=== PATIENT | male | born 1980 | race Hispanic/Latino ===

== ENCOUNTER → 2024-02-14 | Outpatient (CLI) | payer OTHER ==
[2024-02-14] MEDS: REGADENOSON 0.4 MG/5 ML PF SYG IVP SCH (11:20)
--- NOTE | 2024-02-14 17:28 | HMCSR ---
APPROVED REPORT Height: 5 ft 7in Weight: 178 lbs TEST INDICATIONS Chest Pain The imaging protocol used to acquire images was Rest Tc-99m/stress Tc-99m 1 day Consent: The procedure was explained and understood by the patient. Informerd consent was witnessed avani Jc RN First, low dose rest was performed then high dose stress. RESTING DATA: The resting ekg shows: NSR Rest SPECT myocardial perfusion imaging was performed in supine position minutes following the intra venous injection of 10 mCi of Tc-99 Sestamibi. Time of rest injection: Date: 02/14/2024 Time of rest imaging: Date: 02/14/2024 PHARMACOLOGIC STRESS: Pharmacologic stress test was performed by injecting regadenoson 0.4 mg IV push followed by the intra venous injection of 30 mCi of Tc-99 Sestamibi. Time of stress injection: Date: 02/14/2024 Time of stress imaging: Date: 02/14/2024 Gated Stress SPECT was performed 67 minutes after stress injection. The images were gated to evaluate regional wall motion and calculate left ventricular ejection fracti on. STRESS DETAILS Reason for Termination: Infusion complete Stress Symptoms: Dyspnea, Flushing Max HR Achieved: 125 bpm % of APMHR Achieved: 83 Max Blood Pressure: 168/82 mmHg Stress ECG: NSR Study quality was good. Lung uptake was Normal. Artifact: breast and diaphragmatic artifact LEFT VENTRICLE The left ventricular ejection fraction was calculated to be 85%.TID = 1.06. LV PERFUSION Stress Perfusion: Size:Medium (3-4 segments) Severity: Mild Location: anterior Rest Perfusion Normal Conclusion Subtle anterior wall ischemia moderate size mild degree Preserved ejection fraction calculated at 85% with a slightly elevated transient ischemic dilatation ratio at 1.06 Clinical correlation recommended Clinical correlation recommended
== END | disposition home or self-care (01) ==
LOC: RAH 08:56
PROVIDERS: ATTEND Internal Medicine Cardiovascular Disease
DX: I99.8 Other disorder of circulatory system (principal); R07.9 Chest pain, unspecified
CPT/HCPCS: 78452; 93017; J2785; A9500 ×2